=== PATIENT | female | born 1975 | race Caucasian/White ===

== ENCOUNTER → 2016-06-17 | Day surgery (SDC) | payer OTHER ==
[2016-06-16 12:31] VITALS: BMI 46.7
[~2016-06-17] MED LIST: oxyCODONE HCL 5 MG TABLET PO ONE
[2016-06-17 12:16] VITALS: TEMP 98.7
[2016-06-17 12:22] VITALS: BP 136/85; PULSE 96
--- NOTE | 2016-06-17 15:19 | OP ---
DATE OF OPERATION: 06/17/2016 PREOPERATIVE DIAGNOSIS: Low back pain with lumbar radiculopathy. POSTOPERATIVE DIAGNOSIS: Low back pain with lumbar radiculopathy. PROCEDURE: Lumbar epidural steroid injection, interlaminar, at the L4-L5 level on the left side. ANESTHESIA: Local and MAC. ANESTHESIOLOGIST: ONEL PROCEDURE: I discussed with her in detail the risks, benefits and alternative treatments. Patient understood, agreed and signed the written consent. The patient was placed in the prone position with the head, neck and abdomen supported with pillows. The lumbosacral area was prepped and draped in a sterile fashion. She was given IV sedation. On the left side, the L4-L5 level was identified under fluoroscopy and 3 mL of 1% lidocaine were injected into the skin and subcutaneous tissue. A 22-gauge, 10-1/2-inch Tuohy needle was used to approach the epidural space but it failed, so a 22-gauge, 5-inch spinal needle was used to approach the epidural space with loss of resistance technique under intimate and fluoroscopy in both AP and oblique view. Omnipaque 180 at 3 mL was injected to see the flow of dye into the epidural space both cranially and caudally. There was no venous uptake and there was no flow of CSF after negative aspiration. Then, 2.5 mL of Celestone mixed with 2.5 mL of 0.25% preservative-free Marcaine, a total of 5 mL, was injected into the epidural space after negative aspiration. While the needle was withdrawn, 1 mL of 1% lidocaine was infiltrated. The patient tolerated the procedure well. There was no immediate complication. Betadine was wiped out. A sterile bandage was placed. Patient was transferred to the recovery room. Patient was advised to apply ice. If any problems, call me or report to the ER. A followup appointment was given. KAREN ONEIL M.D. [id number] MTDD
== END | disposition home or self-care (01) ==
LOC: FASU 08:18
PROVIDERS: ATTEND Physical Medicine & Rehabilitation
PROC: 3E0R3CZ (ICD-10-PCS; 2016-06-17)
PROC: B01B1ZZ Fluoroscopy of Spinal Cord using Low Osmolar Contrast (ICD-10-PCS; 2016-06-17)
PROC: 3E0R33Z Introduction of Anti-inflammatory into Spinal Canal, Percutaneous Approach (ICD-10-PCS; principal; 2016-06-17 10:49)
DX: M54.16 Radiculopathy, lumbar region (principal); M54.5 Low back pain
CPT/HCPCS: 72100-TC; 84703

== ENCOUNTER 2016-08-26 10:55 | Day surgery (SDC) | payer OTHER ==
[2016-08-25 18:56] VITALS: BMI 46.5
[2016-08-26 12:27] VITALS: TEMP 98.2
[2016-08-26] MEDS ORDERED: PROPOFOL 20 ML ONE (13:10)
[2016-08-26] MEDS ORDERED: BETAMET ACET/BETAMET NA PH 30 MG/5 ML VIAL IM ONE (13:46)
[2016-08-26] MEDS ORDERED: LIDOCAINE HCL 1%, 10 MG/ML (20ML VIAL) IJ ONE (13:46)
[2016-08-26] MEDS ORDERED: IOHEXOL 180 MG/1 ML ML IJ ONE (13:47)
[2016-08-26 15:58] VITALS: BP 140/77; PULSE 69
--- NOTE | 2016-09-09 14:19 | OP ---
DATE OF OPERATION: 08/26/2016 PREOPERATIVE DIAGNOSES: Low back pain, lumbar radiculopathy on the left side. POSTOPERATIVE DIAGNOSES: Low back pain, lumbar radiculopathy on the left side. PROCEDURE: Lumbar epidural steroid injection, interlaminar, at left L4-L5 level. ANESTHESIA: Local and MAC. ANESTHESIOLOGIST: Shavonne Quintanilla CRNA CONSENT: I discussed with the patient the risks, benefits and alternative treatments, not only limited to infection, fever, headache, numbness, tingling, weakness, injury to nerves, blood vessels and muscles. The patient understood, agreed and signed the written consent. DESCRIPTION OF PROCEDURE: The patient was placed in the prone position. Her abdomen and legs were supported with pillows. The lumbosacral area was prepped and draped with Betadine x3 and alcohol x3. Under fluoroscopy, the left L4-L5 level was identified. At this level, 3 mL of 1% lidocaine were infiltrated. A 20-gauge, 3-1/2-inch Tuohy needle was used to approach the epidural space with the loss of resistance technique in the interlaminar approach under intermittent fluoroscopy, both the AP and oblique view. After negative aspiration, 2 mL of Omnipaque 180 were injected to see the flow of dye into the epidural space both cranially and caudally. There was no venous uptake or CSF spread. Next, 2.5 mL of Celestone mixed with 2.5 mL of 0.25% preservative-free Marcaine, a total volume 5 mL, were injected at this level after negative aspiration. While the needle was withdrawn, 1 mL of 1% lidocaine was infiltrated. Bleeding was checked. Betadine was wiped off. Sterile bandage was placed. Patient was transferred to recovery room. Patient was observed for some time and discharged as per ASU criteria. Patient was told to apply ice and heat. If any problem, call me or report to the ER. Patient was given a followup appointment. KAREN ONEIL M.D. JOAQUIN/[id number]
== END 2016-08-26 15:00 | disposition home or self-care (01) ==
LOC: JASU-SURG 10:55
PROVIDERS: ATTEND Physical Medicine & Rehabilitation
PROC: 3E0R3CZ (ICD-10-PCS; 2016-08-26)
PROC: B01BYZZ Fluoroscopy of Spinal Cord using Other Contrast (ICD-10-PCS; 2016-08-26)
PROC: 3E0R33Z Introduction of Anti-inflammatory into Spinal Canal, Percutaneous Approach (ICD-10-PCS; principal; 2016-08-26 12:30)
DX: M54.16 Radiculopathy, lumbar region (principal); M54.5 Low back pain
CPT/HCPCS: 76000-TC; 84703

== ENCOUNTER 2017-02-10 10:26 | Day surgery (SDC) | payer OTHER ==
[2017-02-09 18:04] VITALS: BMI 50.0
[2017-02-10] MEDS ORDERED: BUPIVACAINE HCL/PF 0.25% (2.5MG/ML) 10 ML VIAL ONE (10:58)
[2017-02-10] MEDS ORDERED: LIDOCAINE HCL 1%, 10 MG/ML (20ML VIAL) ONE (10:58)
[2017-02-10 11:06] VITALS: TEMP 97.3
[2017-02-10] MEDS ORDERED: LIDOCAINE HCL 1%, 10 MG/ML (20ML VIAL) INF ONE (12:21)
[2017-02-10] MEDS ORDERED: BUPIVACAINE HCL/PF (5 MG/ML) 30 ML VIAL IJ ONE (12:21)
[2017-02-10 13:51] VITALS: BP 131/79; PULSE 90
== END 2017-02-10 14:00 | disposition home or self-care (01) ==
LOC: JASU-SURG 10:26
PROVIDERS: ATTEND Physical Medicine & Rehabilitation
PROC: 3E0T3BZ Introduction of Anesthetic Agent into Peripheral Nerves and Plexi, Percutaneous Approach (ICD-10-PCS; principal; 2017-02-10)
PROC: 3E0T33Z Introduction of Anti-inflammatory into Peripheral Nerves and Plexi, Percutaneous Approach (ICD-10-PCS; 2017-02-10)
PROC: BR16YZZ Fluoroscopy of Lumbar Facet Joint(s) using Other Contrast (ICD-10-PCS; 2017-02-10)
DX: M46.86 Other specified inflammatory spondylopathies, lumbar region (principal); M54.5 Low back pain
CPT/HCPCS: 76000-TC; 84703

== ENCOUNTER 2018-01-16 16:42 | Emergency (ER) | payer OTHER ==
[2018-01-16 17:02] VITALS: BP 130/87; PULSE 93; TEMP 98.2; BMI 48.5
--- NOTE | 2018-01-16 17:28 | PDOC ---
History of Present Illness - General Chief Complaint: Cold Symptoms Stated Complaint: RIB CAGE PAIN Time Seen by Provider: 01/16/18 17:18 History Source: Patient Exam Limitations: Clinical Condition - History of Present Illness Initial Comments: 01/16/18 17:23 Patient with no significant past medication present with complaint of 3 the issue of nonproductive cough, runny nose and now left-sided for cage pain for 2 days. Patient denies fever, chills, diarrhea or constipation. Patient denies symptoms symptoms Timing/Duration: other (3 days) Past History - Past Medical History Allergies/Adverse Reactions: Allergies Allergy/AdvReac Type Severity Reaction Status Date / Time No Known Drug Allergies Allergy Verified 01/16/18 16:58 Home Medications: Ambulatory Orders Azithromycin [Zithromax 250mg Tablets -] 250 mg PO UTDICT #6 tab 01/16/18 Benzonatate [Tessalon Pearls -] 100 mg PO TID PRN #21 capsule 01/16/18 Ipratropium [place] 2 spray NS BID PRN #1 spray 01/16/18 Methylprednisolone [Medrol Dose Yanick] 4 mg PO ASDIR #21 tablet 01/16/18 Anemia: No Asthma: No (HASN'T USED INHALER IN OVER A YEAR) Cancer: No Cardiac Disorders: No CVA: No COPD: No CHF: No Dementia: No Diabetes: No (GESTATIONAL) GI Disorders: Yes (HX GALL STONES) Disorders: Yes (DROPPED BLADDER) HTN: No Hypercholesterolemia: No Liver Disease: No Seizures: No Thyroid Disease: No - Surgical History Abdominal Surgery: No Appendectomy: No Cardiac Surgery: No Cholecystectomy: Yes (2014) Lung Surgery: No Neurologic Surgery: No Orthopedic Surgery: No - Immunization History Td Vaccination: Yes - Suicide/Smoking/Psychosocial Hx Smoking Status: No Smoking History: Never smoked Years of Tobacco Use: 0 Have you smoked in the past 12 months: No Number of Cigarettes Smoked Daily: 0 Cigars Per Day: 0 Information on smoking cessation initiated: No Hx Alcohol Use: No Drug/Substance Use Hx: No Substance Use Type: None Hx Substance Use Treatment: No Review of Systems - Review of Systems Able to Perform ROS?: Yes Is the patient limited Polish proficient: No Constitutional: No: Chills, Fever, Weakness HEENTM: Yes: Symptoms Reported, See HPI, Nose Congestion. No: Eye Pain, Blurred Vision, Tearing, Recent change in vision, Double Vision, Cataracts, Ear Pain, Ocular Prothesis, Ear Discharge, Nose Pain, Tinnitus, Nose Bleeding, Hearing Loss, Throat Pain, Throat Swelling, Mouth Pain, Dental Problems, Difficulty Swallowing, Mouth Swelling, Other Respiratory: Yes: See HPI, Cough. No: Orthopnea, Shortness of Breath, SOB with Exertion, SOB at Rest, Stridor, Wheezing, Productive cough, Hemoptysis Cardiac (ROS): No: Symptoms Reported, Chest Pain, Edema, Irregular Heart Rate, Lightheadedness, Palpitations, Syncope, Chest Tightness, Other ABD/GI: No: Symptoms Reported, Abdominal Distended, Abd. Pain w/ defecation, Blood Streaked Bowels, Constipated, Diarrhea, Difficulty Swallowing, Nausea, Poor Appetite, Poor Fluid Intake, Rectal Bleeding, Vomiting, Indigestion, Abdominal cramping, Tarry Stools, Other Musculoskeletal: Yes: See HPI, Muscle Pain (left lower ribs pain). No: Back Pain, Muscle Weakness All Other Systems: Reviewed and Negative *Physical Exam - Vital Signs Last Vital Signs Temp Pulse Resp BP Pulse Ox 98.2 F 93 H 16 130/87 98 01/16/18 16:50 01/16/18 16:50 01/16/18 16:50 01/16/18 16:50 01/16/18 16:50 - Physical Exam Comments: 01/16/18 17:25 GENERAL: Well developed, well nourished. Awake and alert. No acute distress. HEENT: Normocephalic, atraumatic. PERRLA, EOMI. No conjunctival pallor. Sclera are non-icteric. Moist mucous membranes. Oropharynx is clear. NECK: Supple. Full ROM. CARDIOVASCULAR: Regular rate and rhythm. No murmurs, rubs, or gallops. Distal pulses are 2+ and symmetric. PULMONARY: No evidence of respiratory distress. Lungs clear to auscultation bilaterally. No wheezing, rales or rhonchi. ABDOMINAL: Soft. Non-tender. Non-distended. No rebound or guarding. No organomegaly. Normoactive bowel sounds. MUSCULOSKELETAL : moderate tenderness to left lower ribcage.Normal range of motion at all joints. SKIN: Warm and dry. Normal capillary refill. No rashes. No jaundice. NEUROLOGICAL: Alert, awake, appropriate. Gait is normal without ataxia. PSYCHIATRIC: Cooperative. Good eye contact. Appropriate mood General Appearance: Yes: Nourished, Appropriately Dressed. No: Apparent Distress ED Treatment Course - RADIOLOGY Radiology Studies Ordered: Category Date Time Status CHEST PA & LAT [RAD] Stat Radiology 01/16/18 17:22 Ordered Medical Decision Making - Medical Decision Making 01/16/18 17:26 Patient with no syndrome past medication present with complaint of persistent nonproductive cough, runny nose, nasal congestion and left-sided rib pain. Exam significant for moderate tenderness to left lower rib cage otherwise unremarkable exam. Symptoms likely musculoskeletal from persistent cough. Chest x-ray ordered. Discharge home on NSAIDs if negative chest x-ray. 01/16/18 18:10 chest x-ray shows no acute pathology of infiltrate. Patient stable for discharge for outpatient treatment for Bronchitis *DC/Admit/Observation/Transfer Diagnosis at time of Disposition: Bronchitis, Rib pain on left side, Cough - Discharge Dispostion Disposition: HOME Condition at time of disposition: Stable Decision to Admit order: No - Prescriptions Prescriptions: Azithromycin [Zithromax 250mg Tablets -] 250 mg PO UTDICT #6 tab Benzonatate [Tessalon Pearls -] 100 mg PO TID PRN #21 capsule PRN Reason: Cough Ipratropium [place] 2 spray NS BID PRN #1 spray PRN Reason: nasal congestion Methylprednisolone [Medrol Dose Yanick] 4 mg PO ASDIR #21 tablet - Referrals Referrals: John Paul To MD [Primary Care Provider] - - Patient Instructions Printed Discharge Instructions: DI for Acute Bronchitis Additional Instructions: take medications as prescribed. You will be contacted if any change in X-ray report from radiologist. Follow-up with PCP - Post Discharge Activity
[2018-01-16] MEDS ORDERED: IBUPROFEN 400 MG TABLET (FP) PO ONE ×2 (17:46→17:48)
== END 2018-01-16 17:51 | disposition home or self-care (01) ==
LOC: JERFT 16:42
DX: J40 Bronchitis, not specified as acute or chronic (principal); Z87.09 Personal history of other diseases of the respiratory system
CPT/HCPCS: 71046-TC-FY; 99281-25

== ENCOUNTER 2018-04-16 22:16 | Emergency (ER) | payer OTHER ==
[2018-04-16 22:27] VITALS: PULSE 88; BMI 51.6
[2018-04-16] MEDS ORDERED: ALBUTEROL SO4 2.5/IPRATROPIUM 0.5 INH SOL 3 ML VIAL.NEB. NEB ONE (23:23)
--- NOTE | 2018-04-17 00:18 | PDOC ---
Attending Attestation - HPI HPI: 04/17/18 01:20 The patient is a 43 year old female with past medical history significant for chronic pain presents to the emergency department with a cough and shortness of breath. The patient presents with 3 days of worsening cough with shortness of breath. The patient reports shes had severe episode of coughs today with the feeling of O2 level dropping and pain radiating down the legs. Denies fever, chills, chest pain, or known sick contact. Allergies: NKDA Social history: No tobacco, alcohol or drug use reported. PCP: Dr. Hui To. - Medical Decision Making 04/17/18 01:20 Documentation prepared by Tamiko Milner, acting as medical clinic manager for Darya Olivera MD. <Tamiko Milner - Last Filed: 04/17/18 01:20> - Resident Resident Name: Willie Diaz - ED Attending Attestation I have performed the following: I have examined & evaluated the patient, The case was reviewed & discussed with the resident, I agree w/resident's findings & plan - Physicial Exam PE: 04/17/18 19:51 Agree with resident exam. No acute findings. Pt comes with chronic pains. - Medical Decision Making 04/17/18 19:52 No need for further workup. Pt will follow with her PMD and pain doc for pain meds. <Darya Olivera - Last Filed: 04/17/18 19:52>
--- NOTE | 2018-04-17 01:04 | PDOC ---
History of Present Illness - General Chief Complaint: Shortness of Breath Stated Complaint: cough,shortness of breath Time Seen by Provider: 04/17/18 00:06 History Source: Patient Exam Limitations: No Limitations - History of Present Illness Initial Comments: 04/17/18 00:58 The patient is a 43F with a PMH of chronic pain who presents to the ER with complaints of cough x 3 days. The patient states that her cough was so severe that she felt like "she was not getting oxygen to her body". She states that she also coughed so hard that she spit up blood. She denies fever, chills, myalgias, CP, current SOB. She denies any long car rides/plane trips, hx of cancer, hx of DVT/PE. Past History - Past Medical History Allergies/Adverse Reactions: Allergies Allergy/AdvReac Type Severity Reaction Status Date / Time No Known Drug Allergies Allergy Verified 01/16/18 16:58 Home Medications: Ambulatory Orders Albuterol Sulfate Inhaler - [Ventolin HFA Inhaler -] 1 - 2 inh PO QID PRN #1 inhaler 04/17/18 Hydrocodone/Acetaminophen [Vicodin 5-300 mg Tablet] 1 each PO DAILY 04/17/18 Anemia: No Asthma: No (HASN'T USED INHALER IN OVER A YEAR) Cancer: No Cardiac Disorders: No CVA: No COPD: No CHF: No Dementia: No Diabetes: No (GESTATIONAL) GI Disorders: Yes (HX GALL STONES) Disorders: Yes (DROPPED BLADDER) HTN: No Hypercholesterolemia: No Liver Disease: No Seizures: No Thyroid Disease: No Other medical history: herniated discs - Surgical History Abdominal Surgery: No Appendectomy: No Cardiac Surgery: No Cholecystectomy: Yes (2014) Lung Surgery: No Neurologic Surgery: No Orthopedic Surgery: No - Immunization History Td Vaccination: Yes - Suicide/Smoking/Psychosocial Hx Smoking Status: No Smoking History: Never smoked Years of Tobacco Use: 0 Have you smoked in the past 12 months: No Number of Cigarettes Smoked Daily: 0 Cigars Per Day: 0 Information on smoking cessation initiated: No Hx Alcohol Use: No Drug/Substance Use Hx: No Substance Use Type: None Hx Substance Use Treatment: No Review of Systems - Review of Systems Able to Perform ROS?: Yes Comments:: 04/17/18 01:02 GENERAL/CONSTITUTIONAL: No fever or chills. No weakness. HEAD, EYES, EARS, NOSE AND THROAT: No change in vision. No ear pain or discharge. No sore throat. CARDIOVASCULAR: No chest pain, palpitations, or lightheadedness. RESPIRATORY: Positive for cough and SOB with mild hemoptysis. GASTROINTESTINAL: No nausea, vomiting, diarrhea, constipation, or abdominal pain. GENITOURINARY: No dysuria, frequency, hematuria, or change in urination. MUSCULOSKELETAL: No joint or muscle swelling or pain. No neck or back pain. SKIN: No rash or lesions. NEUROLOGIC: No headache, numbness, tingling, focal weakness, loss of consciousness, or change in strength/sensation. Is the patient limited German proficient: No *Physical Exam - Vital Signs Last Vital Signs Temp Pulse Resp BP Pulse Ox 97.7 F 88 20 124/82 99 04/16/18 22:21 04/16/18 22:21 04/16/18 22:21 04/16/18 22:21 04/16/18 22:21 - Physical Exam Comments: 04/17/18 01:02 GENERAL: Well developed, well nourished. Awake and alert. No acute distress. HEENT: Normocephalic, atraumatic. Hearing grossly normal. Moist mucous membranes. PERRLA, EOMI. No conjunctival pallor. Sclera are non-icteric. NECK: Supple. Full ROM. No JVD. CARDIOVASCULAR: Regular rate and rhythm. No murmurs, rubs, or gallops. PULMONARY: No evidence of respiratory distress. Lungs clear to auscultation bilaterally. No wheezing, rales or rhonchi. ABDOMINAL: Soft. Non-tender. Non-distended. No rebound or guarding. GENITOURINARY: No CVA tenderness bilaterally. MUSCULOSKELETAL: Normal range of motion at all joints. No bony deformities or tenderness. EXTREMITIES: No cyanosis. No clubbing. No edema. No calf tenderness or swelling. SKIN: Warm and dry. Normal capillary refill. No rashes. No jaundice. NEUROLOGICAL: Alert, awake, appropriate. Cranial nerves 2-12 grossly intact. Normal speech. Gait is normal without ataxia. PSYCHIATRIC: Cooperative. Good eye contact. Appropriate mood and affect. Moderate Sedation - Procedure Monitoring Vital Signs: Procedure Monitoring Vital Signs Temperature 97.7 F 04/16/18 22:21 Pulse Rate 88 04/16/18 22:21 Respiratory Rate 20 04/16/18 22:21 Blood Pressure 124/82 04/16/18 22:21 O2 Sat by Pulse Oximetry (%) 99 04/16/18 22:21 ED Treatment Course - RADIOLOGY Radiology Studies Ordered: Category Date Time Status CHEST PA & LAT [RAD] Stat Radiology 04/17/18 00:43 Ordered Medical Decision Making - Medical Decision Making 04/17/18 01:03 The patient is a 43F with a PMH of chronic pain who presents with 3 days of cold symptoms. Pt feels better after breathing treatment. Will order CXR after negative Upreg as pt has abnormal periods. Will also order outpt breathing tx. 04/17/18 01:57 XR unremarkable on preliminary read. Will d/c with PCP f/u. *DC/Admit/Observation/Transfer Diagnosis at time of Disposition: Viral URI with cough - Discharge Dispostion Disposition: HOME Condition at time of disposition: Stable Decision to Admit order: No - Prescriptions Prescriptions: Albuterol Sulfate Inhaler - [Ventolin HFA Inhaler -] 1 - 2 inh PO QID PRN #1 inhaler PRN Reason: Cough - Referrals Referrals: John Paul To MD [Primary Care Provider] - - Patient Instructions Printed Discharge Instructions: Common Cold Additional Instructions: Please follow up with your primary care physician in 2-3 days. Please return to the ER if you have any signs or symptoms of chest pain, shortness of breath, uncontrollable fever, chills, nausea, vomiting, numbness, tingling, or weakness in any part of your body, changes in vision, or slurred speech. Please take your medications as prescribed. Please return to the ER if symptoms persist, worsen, or new symptoms arise. - Post Discharge Activity
[2018-04-17 02:05] VITALS: BP 126/78; TEMP 98.5
== END 2018-04-17 02:06 | disposition home or self-care (01) ==
LOC: JER 22:16
DX: J06.9 Acute upper respiratory infection, unspecified (principal); B97.89 Other viral agents as the cause of diseases classified elsewhere
CPT/HCPCS: 71046-TC-FY; 84703; 99281-25

== ENCOUNTER 2018-04-17 15:48 | Emergency (ER) | payer OTHER ==
[2018-04-17 15:59] VITALS: BP 154/77; PULSE 125; TEMP 99.5; BMI 51.7
--- NOTE | 2018-04-17 17:00 | PDOC ---
History of Present Illness - General Chief Complaint: Respiratory Stated Complaint: FLU LIKE SYMPTOMS Time Seen by Provider: 04/17/18 16:45 History Source: Patient Exam Limitations: No Limitations - History of Present Illness Initial Comments: 04/17/18 16:56 Patient is here with complaints of progressive worsening cough, fevers, headache , sore throat and ear pain, moist productive cough of thick clearish phlegm. Was seen here yesterday with hemoptysis, no testing was done or medications provided. Timing/Duration: reports: getting worse Severity: reports: mild Past History - Travel Traveled outside of the country in the last 30 days: No Close contact w/someone who was outside of country & ill: No - Past Medical History Allergies/Adverse Reactions: Allergies Allergy/AdvReac Type Severity Reaction Status Date / Time No Known Drug Allergies Allergy Verified 01/16/18 16:58 Home Medications: Ambulatory Orders Oseltamivir Phosphate [Tamiflu -] 75 mg PO BID #10 capsule 04/17/18 Anemia: No Asthma: No (HASN'T USED INHALER IN OVER A YEAR) Cancer: No Cardiac Disorders: No CVA: No COPD: No CHF: No Dementia: No Diabetes: No (GESTATIONAL) GI Disorders: Yes (HX GALL STONES) Disorders: Yes (DROPPED BLADDER) HTN: No Hypercholesterolemia: No Liver Disease: No Seizures: No Thyroid Disease: No - Surgical History Abdominal Surgery: No Appendectomy: No Cardiac Surgery: No Cholecystectomy: Yes (2014) Lung Surgery: No Neurologic Surgery: No Orthopedic Surgery: No - Immunization History Td Vaccination: Yes - Suicide/Smoking/Psychosocial Hx Smoking Status: No Smoking History: Never smoked Years of Tobacco Use: 0 Have you smoked in the past 12 months: No Number of Cigarettes Smoked Daily: 0 Cigars Per Day: 0 Hx Alcohol Use: No Drug/Substance Use Hx: No Substance Use Type: None Hx Substance Use Treatment: No Review of Systems - Review of Systems Able to Perform ROS?: Yes Is the patient limited Sammarinese proficient: Yes Constitutional: Yes: Symptoms Reported, See HPI, Chills, Fever, Malaise, Weakness HEENTM: Yes: Symptoms Reported, See HPI, Nose Congestion, Throat Pain Respiratory: Yes: Symptoms reported, See HPI, Cough, Wheezing ABD/GI: Yes: Symptoms Reported, See HPI, Nausea Musculoskeletal: Yes: Symptoms Reported, Muscle Pain, Muscle Weakness Integumentary: Yes: Symptoms Reported, Pallor All Other Systems: Reviewed and Negative *Physical Exam - Vital Signs Last Vital Signs Temp Pulse Resp BP Pulse Ox 99.5 F 125 H 20 154/77 98 04/17/18 15:56 04/17/18 15:56 04/17/18 15:56 04/17/18 15:56 04/17/18 15:56 - Physical Exam Comments: 04/17/18 16:57 GENERAL: [The child is awake, alert, and appropriately interactive.] EYES: [The pupils are equal, round, and reactive to light, with clear, conjunctiva.but glassy] NOSE: [The nose with clear drainage EARS: [The ear canals and tympanic membranes are congested but landmarks easily visualed ] THROAT: [The oropharynx is clear with erythema, no exudates. The mucous membranes are moist.] NECK: [The neck is supple with mildly tender adenopathy, no menigemous] CHEST: [The lungs are coarse but clear without crackles, or wheezes.] HEART: [Heart is regular rhythm, with normal S1 and S2, no murmurs.] ABDOMEN: [The abdomen is soft and nontender with normal bowel sounds. There is no organomegaly and no mass. There is no guarding or rebound.] EXTREMITIES: [Extremities are normal.] NEURO: [Behavior is normal for age.cranky but easily,m Tone is normal.] SKIN: [Skin is unremarkable without rash or swelling. There is no bruising, and there are no other signs of injury.] General Appearance: Yes: Nourished, Appropriately Dressed, Apparent Distress, Mild Distress, Moderate Distress HEENT: positive: JOHNATHON Neurologic: positive: shot packer II-XII NML intact, Fully Oriented Moderate Sedation - Procedure Monitoring Vital Signs: Procedure Monitoring Vital Signs Temperature 99.5 F 04/17/18 15:56 Pulse Rate 125 H 04/17/18 15:56 Respiratory Rate 20 04/17/18 15:56 Blood Pressure 154/77 04/17/18 15:56 O2 Sat by Pulse Oximetry (%) 98 04/17/18 15:56 *DC/Admit/Observation/Transfer Diagnosis at time of Disposition: Influenzal acute upper respiratory infection - Discharge Dispostion Disposition: HOME Condition at time of disposition: Stable Decision to Admit order: No - Referrals - Patient Instructions Printed Discharge Instructions: DI for Viral Upper Respiratory Infection -- Adult Additional Instructions: Rest, drink lots of fluids: Teas, water, soups, Pedialyte Saltwater gargles Steamy showers/seem to face break up mucus Old-fashioned treatments help! Avoid contact with others until fevers and cough resolved as this is very contagious Lots of handwashing and good hygiene Continue [id number]-ldkliiq medications for symptomatic relief Tylenol or Motrin for fever and pain Take all of Tamiflu as directed: 1 tab every 12 hours for 5 days Followup with private physician in one to 2 days as needed or if worsening Return to emergency department for worsened symptoms, fevers, dehydration Influenza takes between 5 and 7 days for resolution To not participate in any activity, work, or school until fevers and cough are gone for at least one day - Post Discharge Activity
== END 2018-04-17 17:04 | disposition home or self-care (01) ==
LOC: JERFT 15:48
DX: J11.1 Influenza due to unidentified influenza virus with other respiratory manifestations (principal)
CPT/HCPCS: 99281-25

== ENCOUNTER 2018-04-26 10:42 | Emergency (ER) | payer OTHER ==
[2018-04-26 10:58] VITALS: BP 157/71; PULSE 97; TEMP 98.1; BMI 51.6
[2018-04-26] MEDS ORDERED: DEXAMETHASONE LIQUID 0.5 MG/5 ML 240 ML BULK BOTTLE PO ONE (11:32)
--- NOTE | 2018-04-26 11:33 | PDOC ---
History of Present Illness - General Chief Complaint: Respiratory Stated Complaint: COUGHING/CONJESTED, SOB Time Seen by Provider: 04/26/18 11:24 - History of Present Illness Initial Comments: 04/26/18 11:31 43-year-old female without comorbidities recently treated for the flu presents for evaluation of cough and difficulty breathing and shortness of breath 2 days. She was given a home nebulizer which did not help her. She denies fever. Past History - Past Medical History Allergies/Adverse Reactions: Allergies Allergy/AdvReac Type Severity Reaction Status Date / Time No Known Drug Allergies Allergy Verified 04/26/18 10:54 Home Medications: Ambulatory Orders Azithromycin [Zithromax -] 250 mg PO UTDICT #6 tab 04/26/18 Anemia: No Asthma: No (HASN'T USED INHALER IN OVER A YEAR) Cancer: No Cardiac Disorders: No CVA: No COPD: No CHF: No Dementia: No Diabetes: No (GESTATIONAL) GI Disorders: Yes (HX GALL STONES) Disorders: Yes (DROPPED BLADDER) HTN: No Hypercholesterolemia: No Liver Disease: No Seizures: No Thyroid Disease: No - Surgical History Abdominal Surgery: No Appendectomy: No Cardiac Surgery: No Cholecystectomy: Yes (2014) Lung Surgery: No Neurologic Surgery: No Orthopedic Surgery: No - Immunization History Td Vaccination: Yes - Suicide/Smoking/Psychosocial Hx Smoking Status: No Smoking History: Never smoked Years of Tobacco Use: 0 Have you smoked in the past 12 months: No Number of Cigarettes Smoked Daily: 0 Cigars Per Day: 0 Hx Alcohol Use: No Drug/Substance Use Hx: No Substance Use Type: None Hx Substance Use Treatment: No Review of Systems - Review of Systems Constitutional: Yes: Chills, Malaise. No: Fever Respiratory: Yes: Cough, Orthopnea, Shortness of Breath, Productive cough Cardiac (ROS): Yes: Chest Pain *Physical Exam - Vital Signs Last Vital Signs Temp Pulse Resp BP Pulse Ox 98.1 F 97 H 20 157/71 98 04/26/18 10:55 04/26/18 10:55 04/26/18 10:55 04/26/18 10:55 04/26/18 10:55 - Physical Exam Comments: 04/26/18 11:32 HEAD: NC/AT EYES: Conjuntiva clear Ears: Canals and TM's normal NOSE: No d/c THROAT: Moist mucous membrances, oral pharanx clear, uvula midline NECK: Supple without adenopathy CARDIAC: S1 S2 LUNGS: Decreased at the bases mild expiratory wheezing ABDOMEN: Soft NT ND MS: Full ROM in all joints without edema NEUROLOGIC: No gross sensory or motor deficits, NVID SKIN: Normal color and temperature no lesions or rashes Moderate Sedation - Procedure Monitoring Vital Signs: Procedure Monitoring Vital Signs Temperature 98.1 F 04/26/18 10:55 Pulse Rate 97 H 04/26/18 10:55 Respiratory Rate 20 04/26/18 10:55 Blood Pressure 157/71 04/26/18 10:55 O2 Sat by Pulse Oximetry (%) 98 04/26/18 10:55 ED Treatment Course - RADIOLOGY Radiology Studies Ordered: Category Date Time Status CHEST PA & LAT [RAD] Stat Radiology 04/26/18 11:30 Ordered Medical Decision Making - Medical Decision Making 04/26/18 12:57 Improved, no wheezing after duo neb, will treat for bronchitis *DC/Admit/Observation/Transfer Diagnosis at time of Disposition: Bronchitis - Discharge Dispostion Disposition: HOME Condition at time of disposition: Stable Decision to Admit order: No - Referrals Referrals: John Paul To MD [Primary Care Provider] - - Patient Instructions Printed Discharge Instructions: Acute Bronchitis Additional Instructions: Return to the emergency room should symptoms worsen or go unresolved. Please continue with her home DuoNeb treatments and nebulizers as scheduled follow-up with your primary care physician in one to 2 days for further evaluation and treatment options and can take the antibiotics as directed and finish the entire course - Post Discharge Activity
[2018-04-26] MEDS ORDERED: DEXAMETHASONE SOD PHOSPHATE 10 MG/1 ML VIAL ONE (11:39)
[2018-04-26] MEDS ORDERED: ALBUTEROL SO4 2.5/IPRATROPIUM 0.5 INH SOL 3 ML VIAL.NEB. NEB ONE (11:39)
[2018-04-26] MEDS: ALBUTEROL SO4 2.5/IPRATROPIUM 0.5 INH SOL 3 ML VIAL.NEB. NEB SCH ×4 (11:44→12:45)
== END 2018-04-26 13:02 | disposition home or self-care (01) ==
LOC: JERFT 10:42
PROC: 3E0F7GC Introduction of Other Therapeutic Substance into Respiratory Tract, Via Natural or Artificial Opening (ICD-10-PCS; principal; 2018-04-26)
DX: J40 Bronchitis, not specified as acute or chronic (principal)
CPT/HCPCS: 71046-TC-FY; 94640; 99281-25

== ENCOUNTER 2018-07-20 08:18 | Day surgery (SDC) | payer OTHER ==
[2018-07-20] MEDS ORDERED: oxyCODONE HCL 5 MG TABLET PO PRN ×2 (08:35)
[2018-07-20] MEDS ORDERED: ONDANSETRON 4 MG/2 ML VIAL IVPUSH PRN (08:35)
[2018-07-20 08:47] VITALS: BMI 52.3
[2018-07-20] MEDS ORDERED: TRIAMCINOLONE ACET 40MG/1ML VIAL ONE (09:59)
[2018-07-20] MEDS ORDERED: MIDAZOLAM HCL 2 MG/2 ML SINGLE DOSE VIAL ONE (10:02)
[2018-07-20] MEDS ORDERED: LIDOCAINE HCL 1%, 10 MG/ML (20ML VIAL) ONE (10:07)
[2018-07-20] MEDS ORDERED: BUPIVACAINE HCL/PF 0.5% (5MG/ML) 10 ML VIAL ONE (10:07)
[2018-07-20] MEDS ORDERED: PROPOFOL 20 ML ONE (10:13)
[2018-07-20] MEDS ORDERED: LIDOCAINE HCL 1%, 10 MG/ML (20ML VIAL) NR ONE (10:17)
[2018-07-20] MEDS ORDERED: TRIAMCINOLONE ACET 40MG/1ML VIAL IM ONE (10:19)
[2018-07-20] MEDS ORDERED: IOHEXOL 180 MG/1 ML ML IJ ONE (10:20)
[2018-07-20] MEDS ORDERED: BUPIVACAINE HCL/PF (5 MG/ML) 30 ML VIAL IJ ONE (10:21)
[2018-07-20 11:29] VITALS: BP 140/83; PULSE 80; TEMP 7.6
== END 2018-07-20 11:25 | disposition home or self-care (01) ==
LOC: JASU-SURG 08:18
PROVIDERS: ATTEND Physical Medicine & Rehabilitation
PROC: 3E0U3BZ Introduction of Anesthetic Agent into Joints, Percutaneous Approach (ICD-10-PCS; 2018-07-20)
PROC: 3E0U33Z Introduction of Anti-inflammatory into Joints, Percutaneous Approach (ICD-10-PCS; principal; 2018-07-20 12:00)
DX: M53.3 Sacrococcygeal disorders, not elsewhere classified (principal)
CPT/HCPCS: 76000-TC-FY; 84703

== ENCOUNTER 2018-10-20 10:34 | Emergency (ER) | payer OTHER ==
[2018-10-20 10:46] VITALS: BP 136/74; PULSE 100; TEMP 98.3; BMI 48.5
[2018-10-20] MEDS ORDERED: DIPHTH,PERTUSS(ACELL),TET 0.5 ML DISP.SYRIN IM ONE ×3 (11:16→11:18)
[2018-10-20] MEDS ORDERED: KETOROLAC TROMETHAMINE 30 MG/1 ML VIAL IM ONE (11:19)
[2018-10-20] MEDS ORDERED: KETOROLAC TROMETHAMINE 30 MG/1 ML VIAL ONE (11:19)
--- NOTE | 2018-10-20 11:38 | PDOC ---
History of Present Illness - General Chief Complaint: Bite Stated Complaint: GABRIEL ARMS/ GABRIEL LEGS SCRATCHES Time Seen by Provider: 10/20/18 10:57 History Source: Patient Exam Limitations: No Limitations - History of Present Illness Initial Comments: 10/20/18 11:34 43 year old female with history of herniated disc, and cholescystectomy presents with multiple scratches and bite from own cat. Patient reports that cat attacked child in home and while preventing further injury to child, cat attacked her, biting both upper arms and scratching legs. States cat has no shots and she own cat for 3 years. Timing/Duration: reports: just prior to arrival Severity: Yes: severe Location: reports: extremities, torso Respiratory Risk Factors: reports: no cause identified Associated Symptoms: reports: edema, other (scratches and bites) Past History - Travel Traveled outside of the country in the last 30 days: No Close contact w/someone who was outside of country & ill: No - Past Medical History Allergies/Adverse Reactions: Allergies Allergy/AdvReac Type Severity Reaction Status Date / Time No Known Drug Allergies Allergy Verified 10/20/18 10:36 Home Medications: Ambulatory Orders Amox-Tr/K Cl [Augmentin - 875Mg Tablet] 1 tab PO BID #14 tablet 10/20/18 Ibuprofen 600 mg PO TID #21 tablet 10/20/18 Anemia: No Asthma: No (HASN'T USED INHALER IN OVER A YEAR) Cancer: No Cardiac Disorders: No CVA: No COPD: No CHF: No Dementia: No Diabetes: No (GESTATIONAL) GI Disorders: Yes (HX GALL STONES) Disorders: Yes (DROPPED BLADDER) HTN: No Hypercholesterolemia: No Liver Disease: No Seizures: No Thyroid Disease: No - Surgical History Abdominal Surgery: No Appendectomy: No Cardiac Surgery: No Cholecystectomy: Yes (2014) Lung Surgery: No Neurologic Surgery: No Orthopedic Surgery: No - Immunization History Td Vaccination: Yes - Suicide/Smoking/Psychosocial Hx Smoking Status: No Smoking History: Never smoked Years of Tobacco Use: 0 Have you smoked in the past 12 months: No Number of Cigarettes Smoked Daily: 0 Cigars Per Day: 0 Hx Alcohol Use: No Drug/Substance Use Hx: No Substance Use Type: None Hx Substance Use Treatment: No Review of Systems - Review of Systems Able to Perform ROS?: Yes Is the patient limited Turkmen proficient: No Constitutional: No: Chills, Fever, Malaise, Night Sweats HEENTM: No: Ear Pain, Nose Congestion, Throat Pain, Throat Swelling Respiratory: No: Cough, Orthopnea, Wheezing Cardiac (ROS): No: Chest Pain, Lightheadedness ABD/GI: No: Blood Streaked Bowels, Nausea, Vomiting, Indigestion Musculoskeletal: No: Back Pain, Muscle Weakness Integumentary: Yes: Erythema, Other (scratches to extremities and bites to upper arms) Neurological: No: Headache, Paresthesia, Tremors Psychiatric: No: Mood Swings Endocrine: No: Increased Urine, Unexplained Weight Gain, Change in Weight Hematologic/Lymphatic: No: Blood Clots, Easy Bleeding *Physical Exam - Vital Signs Last Vital Signs Temp Pulse Resp BP Pulse Ox 98.3 F 100 H 18 136/74 98 10/20/18 10:38 10/20/18 10:38 10/20/18 10:38 10/20/18 10:38 10/20/18 10:38 - Physical Exam General Appearance: Yes: Nourished, Appropriately Dressed HEENT: positive: EOMI, JOHNATHON, TMs Normal, Pharynx Normal Neck: positive: Supple. negative: Lymphadenopathy (R), Lymphadenopathy (L) Respiratory/Chest: positive: Chest Tender, Lungs Clear, Normal Breath Sounds Cardiovascular: positive: Regular Rhythm, Regular Rate Extremity: positive: Normal Capillary Refill Integumentary: positive: Other (+scratches) Neurologic: positive: Fully Oriented, Alert Medical Decision Making - Medical Decision Making 10/20/18 11:37 43 year old female with history of herniated disc, and cholescystectomy presents with multiple scratches and bite from own cat. Plan tetanus vaccine toradol for pain 10/20/18 20:01 rx: augmentin instructed to return 10/28/18 for follow up *DC/Admit/Observation/Transfer Diagnosis at time of Disposition: Cat bite Qualifiers: Encounter type: initial encounter Qualified Code(s): W55.01XA - Bitten by cat, initial encounter - Discharge Dispostion Disposition: HOME Condition at time of disposition: Good Decision to Admit order: No - Prescriptions Prescriptions: Amox-Tr/K Cl [Augmentin - 875Mg Tablet] 1 tab PO BID #14 tablet Ibuprofen 600 mg PO TID #21 tablet - Referrals Referrals: John Paul To MD [Primary Care Provider] - 3 days - Patient Instructions Printed Discharge Instructions: DI for Animal Bites Additional Instructions: Please keep wound covered for 24 hours then remove dressing and wash gently with mild soap and water. May leave wound open to air. Return to emergency room 10/28/18 for wound check Return to emergency room for fever or chills. - Post Discharge Activity Forms/Work/School Notes: Back to Work
[2018-10-20] MEDS ORDERED: BACITRACIN 0.9 GM PACKET TP ONE (11:49)
[2018-10-20] MEDS ORDERED: BACITRACIN 15 GM TUBE TOPICAL OINTMENT ONE (11:57)
== END 2018-10-20 12:34 | disposition home or self-care (01) ==
LOC: JERFT 10:34
PROC: 3E0234Z Introduction of Serum, Toxoid and Vaccine into Muscle, Percutaneous Approach (ICD-10-PCS; principal; 2018-10-20)
DX: T14.8XXA Other injury of unspecified body region, initial encounter (principal); W55.01XA Bitten by cat, initial encounter; Y93.89 Activity, other specified; Y92.89 Other specified places as the place of occurrence of the external cause
CPT/HCPCS: 90715; 99281-25

== ENCOUNTER 2018-10-28 11:35 | Emergency (ER) | payer OTHER ==
[2018-10-28 11:43] VITALS: BP 131/82; PULSE 79; TEMP 98.5; BMI 49.3
--- NOTE | 2018-10-28 12:06 | PDOC ---
Suture Removal/Wound Check HPI - History of Present Illness Chief Complaint: Bite Stated Complaint: FOLLOW UP FOR ANIMAL SCRATCHES Time Seen by Provider: 10/28/18 11:49 History Source: Yes: Patient Exam Limitations: Yes: No Limitations Treated at: [facility] ED - Previous ED Treatment Type of procedure performed on last visit: Yes: Other (treatment for cat scratches) Tetanus Immunization: Yes: Up to Date - Onset of Previous Treatment Date of Occurence: 10/21/18 Past History - Travel Traveled outside of the country in the last 30 days: No - Past Medical History Allergies/Adverse Reactions: Allergies Allergy/AdvReac Type Severity Reaction Status Date / Time No Known Drug Allergies Allergy Verified 10/20/18 10:36 Home Medications: Ambulatory Orders Amox-Tr/K Cl [Augmentin - 875Mg Tablet] 1 tab PO BID #14 tablet 10/20/18 Ibuprofen 600 mg PO TID #21 tablet 10/20/18 Cephalexin [Keflex] 500 mg PO BID #14 capsule 10/28/18 Anemia: No Asthma: No (HASN'T USED INHALER IN OVER A YEAR) Cancer: No Cardiac Disorders: No CVA: No COPD: No CHF: No Dementia: No Diabetes: No (GESTATIONAL) GI Disorders: Yes (HX GALL STONES) Disorders: Yes (DROPPED BLADDER) HTN: No Hypercholesterolemia: No Liver Disease: No Seizures: No Thyroid Disease: No - Surgical History Abdominal Surgery: No Appendectomy: No Cardiac Surgery: No Cholecystectomy: Yes (2014) Lung Surgery: No Neurologic Surgery: No Orthopedic Surgery: No - Immunization History Td Vaccination: Yes - Suicide/Smoking/Psychosocial Hx Smoking Status: No Smoking History: Never smoked Years of Tobacco Use: 0 Have you smoked in the past 12 months: No Number of Cigarettes Smoked Daily: 0 Cigars Per Day: 0 Information on smoking cessation initiated: No Hx Alcohol Use: No Drug/Substance Use Hx: No Substance Use Type: None Hx Substance Use Treatment: No Suture Removal/Wound Check PE - Physical Exam Laceration/Wound Check Symptoms: reports: None Current Severity Level: None Maximum Severity Level: None Location of Laceration/Wound: bilateral: Arm, Forearm, Wrist, Thigh, Leg Pain Radiation: None *Review of Systems - Review of Systems Able to Perform ROS?: Yes Constitutional: No: Chills, Fever HEENTM: No: Nose Congestion, Throat Swelling, Difficulty Swallowing Respiratory: No: Orthopnea, Wheezing Cardiac (ROS): No: Lightheadedness ABD/GI: No: Poor Appetite, Indigestion : No: Incontinence, Pain Integumentary: Yes: Other (scratches) Neurological: No: Numbness *Physical Exam - Vital Signs Last Vital Signs Temp Pulse Resp BP Pulse Ox 98.5 F 79 17 131/82 96 10/28/18 11:39 10/28/18 11:39 10/28/18 11:39 10/28/18 11:39 10/28/18 11:39 - Physical Exam General Appearance: Yes: Nourished HEENT: positive: TMs Normal, Pharynx Normal Neck: positive: Supple. negative: Carotid bruit, Lymphadenopathy (R) Respiratory/Chest: positive: Lungs Clear Cardiovascular: positive: Regular Rhythm, Regular Rate Extremity: positive: Normal Capillary Refill Integumentary: positive: Other (scratches on bilateral forearms, wrist hands and lower extremities) Neurologic: positive: Fully Oriented, Alert, Motor Strength 5/5 Medical Decision Making - Medical Decision Making 10/28/18 21:07 43 year old female return to ed for wound check s/p attacked by own cat 8 days ago sustaining multiple scratches on upper and lower extremities wounds healing well, small area on left wrist with induration, tender to touch. No erythema, no warmth Plan rx: keflex *DC/Admit/Observation/Transfer Diagnosis at time of Disposition: Cat bite Qualifiers: Encounter type: subsequent encounter Qualified Code(s): W55.01XD - Bitten by cat, subsequent encounter - Discharge Dispostion Disposition: HOME Condition at time of disposition: Good Decision to Admit order: No - Prescriptions Prescriptions: Cephalexin [Keflex] 500 mg PO BID #14 capsule - Referrals Referrals: John Paul To MD [Primary Care Provider] - - Patient Instructions Printed Discharge Instructions: How to Care for a Domestic Animal Bite Additional Instructions: Please keep wounds clean and dry May apply mederma to wounds. Call primay physician and follow up as needed Take prescribed medication until completed. - Post Discharge Activity Forms/Work/School Notes: Back to Work
== END 2018-10-28 12:14 | disposition home or self-care (01) ==
LOC: JERFT 11:35
DX: Z48.00 Encounter for change or removal of nonsurgical wound dressing (principal); W55.01XD Bitten by cat, subsequent encounter
CPT/HCPCS: 99281-25

== ENCOUNTER 2019-02-11 06:24 | Day surgery (SDC) | payer OTHER ==
[2019-02-11 06:50] VITALS: BMI 49.2
[2019-02-11] MEDS ORDERED: MIDAZOLAM HCL 2 MG/2 ML SINGLE DOSE VIAL ONE (08:09)
--- NOTE | 2019-02-11 08:12 | HP ---
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 Pain is rated 8/10/ History Source: Patient - Past Medical History ...LMP: 01/22/19 ...LMP Comment: perimenopausal? ...: No - Smoking History Smoking history: Never smoked Have you smoked in the past 12 months: No Aproximately how many cigarettes per day: 0 - Alcohol/Substance Use Hx Alcohol Use: Yes (rarely social) Home Medications - Allergies Allergies/Adverse Reactions: Allergies Allergy/AdvReac Type Severity Reaction Status Date / Time No Known Drug Allergies Allergy Verified 02/11/19 06:50 - Home Medications Home Medications: Ambulatory Orders Ibuprofen 400 mg PO PRN PRN 02/11/19 Vicodin Es 7.5-300 mg Tablet 500 mg PO PRN PRN 02/11/19 Physical Examination Vital Signs: Vital Signs Temperature 97.8 F 02/11/19 06:42 Pulse Rate 85 02/11/19 06:42 Respiratory Rate 20 02/11/19 06:42 Blood Pressure 109/68 02/11/19 06:42 O2 Sat by Pulse Oximetry (%) 97 02/11/19 07:27 Findings/Remarks: B/L SIJ TTP Assessment/Plan Pt with B/L SIJ dysfunction. WIll perfrom b/lk SIJ steroid injections.
[2019-02-11] MEDS ORDERED: PROPOFOL 20 ML ONE ×3 (08:18→08:28)
[2019-02-11] MEDS ORDERED: LIDOCAINE HCL/PF 2% SDV 5ML VIAL ONE (08:23)
[2019-02-11] MEDS ORDERED: TRIAMCINOLONE ACET 40MG/1ML VIAL IM ONE (08:36)
[2019-02-11] MEDS ORDERED: LIDOCAINE HCL 1%, 10 MG/ML (20ML VIAL) NR ONE (08:36)
[2019-02-11] MEDS ORDERED: IOHEXOL 180 MG/1 ML ML IJ ONE (08:36)
[2019-02-11] MEDS ORDERED: BUPIVACAINE HCL 0.5% 250 MG/50 ML VIAL NR ONE (08:39)
[2019-02-11 09:08] VITALS: TEMP 97.7
[2019-02-11 10:47] VITALS: BP 125/67; PULSE 85
--- NOTE | 2019-02-11 11:36 | PROC ---
Procedure Note Procedure: Pre procedure Diagnosis: Right and Left Sacroilliac joint Dysfunction. Post Procedure Diagnosis: Same Anesthesia: MAC Procedure: Right and Left Sacroilliac Joint Injection under Fluoroscopic Guidance After the risks and benefits were explained, informed consent was obtained. The patient was then taken to the procedure room and positioned prone on the procedure table. Time out was performed. The region overlying the right sacroiliac joint was identified using fluoroscopy. The skin was prepped and draped in the usual sterile fashion. The skin and soft tissues were anesthetized using 2% lidocaine. Using fluoroscopic guidance, a 22 gauge 3.5 inch spinal needle was then introduced to the inferior aspect of the posterior Right sacroiliac joint. Omnipaque 240 confirmed appropriate needle placement. 1 cc .5% bupivacaine and 1 cc Kenalog was then injected. The same was procedure was repeated on the Left. The patient tolerated the procedure well and there were no complications. The patient was taken to the post procedure recovery area in good condition. Vital signs remained stable before, during, and after the procedure. The patient was given oral and written follow-up instructions. The patient was given a follow up appointment with me in the near future. Fletcher Guaman DO
== END 2019-02-11 10:46 | disposition home or self-care (01) ==
LOC: JASU-SURG 06:24
PROVIDERS: ATTEND Pain Medicine Pain Medicine
PROC: 3E0U3BZ Introduction of Anesthetic Agent into Joints, Percutaneous Approach (ICD-10-PCS; 2019-02-11)
PROC: 3E0U33Z Introduction of Anti-inflammatory into Joints, Percutaneous Approach (ICD-10-PCS; principal; 2019-02-11 08:00)
DX: M54.16 Radiculopathy, lumbar region (principal); M54.5 Low back pain
CPT/HCPCS: 76000-TC-FY

== ENCOUNTER 2019-04-15 07:13 | Day surgery (SDC) | payer OTHER ==
[2019-04-14 08:47] VITALS: BMI 49.2
[2019-04-15] MEDS ORDERED: DEXAMETHASONE SOD PHOSPHATE/PF 10 MG/ML SDV ONE (07:25)
[2019-04-15] MEDS ORDERED: LIDOCAINE HCL 1%, 10 MG/ML (20ML VIAL) ONE (07:25)
[2019-04-15] MEDS ORDERED: BUPIVACAINE HCL/PF 0.75% 10 ML VIAL ONE (07:25)
[2019-04-15] MEDS ORDERED: TRIAMCINOLONE ACET 40MG/1ML VIAL ONE (07:25)
[2019-04-15] MEDS ORDERED: SODIUM CHLORIDE 0.9% P/F 10 ML VIAL IJ ONE (07:31)
[2019-04-15] MEDS ORDERED: MIDAZOLAM HCL 2 MG/2 ML SINGLE DOSE VIAL ONE ×3 (08:10→09:07)
[2019-04-15] MEDS ORDERED: IOHEXOL 180 MG/1 ML ML IJ ONE ×2 (09:08)
[2019-04-15] MEDS ORDERED: PROPOFOL 20 ML ONE (09:08)
[2019-04-15] MEDS ORDERED: BUPIVACAINE HCL/PF 0.75% 10 ML VIAL NR ONE (09:08)
[2019-04-15] MEDS ORDERED: LIDOCAINE HCL 1%, 10 MG/ML (20ML VIAL) INF ONE ×2 (09:08)
[2019-04-15 11:29] VITALS: BP 142/84; PULSE 85; TEMP 98.7
== END 2019-04-15 11:15 | disposition home or self-care (01) ==
LOC: JASU-SURG 07:13
PROVIDERS: ATTEND Pain Medicine Pain Medicine
PROC: BR16YZZ Fluoroscopy of Lumbar Facet Joint(s) using Other Contrast (ICD-10-PCS; 2019-04-15)
PROC: 3E0T3BZ Introduction of Anesthetic Agent into Peripheral Nerves and Plexi, Percutaneous Approach (ICD-10-PCS; principal; 2019-04-15 09:00)
DX: M12.88 Other specific arthropathies, not elsewhere classified, other specified site (principal); M54.5 Low back pain
CPT/HCPCS: 76000-TC-FY; 84703

== ENCOUNTER 2019-04-29 01:17 | Emergency (ER) | payer OTHER ==
[2019-04-29 01:36] VITALS: TEMP 98.2; BMI 53.5
[2019-04-29] MEDS ORDERED: ACETAMINOPHEN 325 MG TABLET (FP) PO ONE (03:36)
[2019-04-29] MEDS ORDERED: ACETAMINOPHEN 325 MG TABLET (FP) ONE (03:39)
--- NOTE | 2019-04-29 04:25 | PDOC ---
Attending Attestation - Resident Resident Name: Maverick Harvey - ED Attending Attestation I have performed the following: I have examined & evaluated the patient, The case was reviewed & discussed with the resident, I agree w/resident's findings & plan, Exceptions are as noted - HPI HPI: 05/05/19 22:24 See resident HPI - Physicial Exam PE: 05/05/19 22:24 Agree with exam as documented - Medical Decision Making 05/05/19 22:24 44F with viral syndrome, daughter at home also with similar symptoms, no travel symptomatic tx, re-eval pt improved dc, pcp f/u
--- NOTE | 2019-04-29 04:44 | PDOC ---
History of Present Illness - General Chief Complaint: Cold Symptoms Stated Complaint: COUGH,BODYACHES,FEVER History Source: Patient Exam Limitations: No Limitations - History of Present Illness Initial Comments: 04/29/19 04:40 44 yo female presents to ED with daughter for fevers and headaches. Daughters symptoms began earlier today and pt symptoms progressively worsened over the course of the day. Pt able to eat and drink, denies N/V, abdominal pain, changes in bowel or bladder habits, CP, SOB. Pt did not take any medication at home. Past History - Past Medical History Allergies/Adverse Reactions: Allergies Allergy/AdvReac Type Severity Reaction Status Date / Time No Known Drug Allergies Allergy Verified 04/29/19 01:32 Home Medications: Ambulatory Orders Ibuprofen 400 mg PO PRN PRN 02/11/19 Anemia: No Asthma: No (HASN'T USED INHALER IN OVER A YEAR) Cancer: No Cardiac Disorders: No CVA: No COPD: No CHF: No Dementia: No Diabetes: No GI Disorders: Yes (HX GALL STONES) Disorders: Yes (DROPPED BLADDER) HTN: No Hypercholesterolemia: No Liver Disease: No Seizures: No Thyroid Disease: No - Surgical History Abdominal Surgery: No Appendectomy: No Cardiac Surgery: No Cholecystectomy: Yes (2014) Lung Surgery: No Neurologic Surgery: No Orthopedic Surgery: No - Immunization History Td Vaccination: Yes - Psycho Social/Smoking Cessation Hx Smoking Status: No Smoking History: Never smoked Years of Tobacco Use: 0 Have you smoked in the past 12 months: No Number of Cigarettes Smoked Daily: 0 Cigars Per Day: 0 Information on smoking cessation initiated: No Hx Alcohol Use: No Drug/Substance Use Hx: No Substance Use Type: None, Alcohol Hx Substance Use Treatment: No Review of Systems - Review of Systems Constitutional: Yes: See HPI HEENTM: Yes: See HPI Respiratory: Yes: See HPI Cardiac (ROS): Yes: See HPI ABD/GI: Yes: See HPI : Yes: See HPI Musculoskeletal: Yes: See HPI Integumentary: Yes: See HPI Neurological: Yes: See HPI *Physical Exam - Vital Signs Last Vital Signs Temp Pulse Resp BP Pulse Ox 98.2 F 98 H 20 143/74 96 04/29/19 01:32 04/29/19 01:32 04/29/19 01:32 04/29/19 01:32 04/29/19 01:32 - Physical Exam General Appearance: Yes: Nourished, Appropriately Dressed. No: Apparent Distress HEENT: positive: EOMI, Normal Voice, Hearing Grossly Normal. negative: Pharyngeal Erythema, Tonsillar Erythema, Excessive drooling Respiratory/Chest: positive: Lungs Clear, Normal Breath Sounds. negative: Respiratory Distress, Accessory Muscle Use, Rapid RR, Crackles, Rales, Rhonchi, Stridor, Wheezing Cardiovascular: positive: Regular Rhythm, Regular Rate, S1, S2. negative: Edema , JVD, Murmur Vascular Pulses: Dorsalis-Pedis (R): 4+, Doralis-Pedis (L): 4+ Gastrointestinal/Abdominal: positive: Flat, Soft. negative: Pulsatile Mass, Protuberent, Distended, Guarding, Rebound, Tenderness Musculoskeletal: negative: CVA Tenderness Extremity: positive: Normal Capillary Refill, Normal Inspection, Normal Range of Motion Integumentary: positive: Normal Color, Dry, Warm Neurologic: positive: Fully Oriented, Alert, Normal Mood/Affect, Normal Response ED Treatment Course - Medications Given in the ED: ED Medications Discontinued Medications Generic Name Dose Route Start Last Admin Trade Name Donaldoq PRN Reason Stop Dose Admin Acetaminophen 650 mg 04/29/19 03:36 04/29/19 03:42 Tylenol - PO 04/29/19 03:37 650 mg ONCE ONE Administration Medical Decision Making - Medical Decision Making 04/29/19 04:43 44 yo female presents to ED with daughter for fevers and headaches. Daughters symptoms began earlier today and pt symptoms progressively worsened over the course of the day. Pt able to eat and drink, denies N/V, abdominal pain, changes in bowel or bladder habits, CP, SOB. Pt did not take any medication at home. vitals WNL Pt is well appearing, NAD. Pt will be givwen PO hydration and tylenol and reassessed 04/29/19 05:29 Pt feels better after tylenol, will DC home with PCP f/u Discharge - Discharge Information Problems reviewed: Yes Clinical Impression/Diagnosis: Influenza Condition: Stable Disposition: HOME - Admission No - Follow up/Referral Referrals: John Paul To MD [Primary Care Provider] - - Patient Discharge Instructions Patient Printed Discharge Instructions: How to Avoid a Cold or Flu, DI for Viral Upper Respiratory Infection -- Adult, DI for H1N1 Influenza -- Adult Additional Instructions: Please see your Primary Doctor within the next 48 hours. Take over the counter Tylenol and Motrin alternating every 4-6 hours for pain and fevers. Return to the ER for new or concerning symptoms. Thank you - Post Discharge Activity
[2019-04-29 05:54] VITALS: BP 92/42; PULSE 123
== END 2019-04-29 06:50 | disposition home or self-care (01) ==
LOC: JER 01:17
DX: J11.1 Influenza due to unidentified influenza virus with other respiratory manifestations (principal); Z87.19 Personal history of other diseases of the digestive system; Z87.448 Personal history of other diseases of urinary system; Z87.09 Personal history of other diseases of the respiratory system; Z90.49 Acquired absence of other specified parts of digestive tract
CPT/HCPCS: 99283-25

== ENCOUNTER 2020-05-08 09:25 | Emergency (ER) | payer OTHER ==
[2020-05-08 09:33] VITALS: BP 137/62; PULSE 89; BMI 54.8
[2020-05-08] MEDS ORDERED: predniSONE 20 MG TABLET (UD) PO ONE (09:40)
[2020-05-08] MEDS ORDERED: diphenhydrAMINE HCL 25 MG CAPSULE (FP) PO ONE ×4 (09:41→09:45)
[2020-05-08] MEDS ORDERED: FAMOTIDINE 20 MG TABLET PO ONE (09:43)
[2020-05-08] MEDS ORDERED: FAMOTIDINE 20 MG TABLET ONE ×2 (09:43→09:49)
[2020-05-08] MEDS ORDERED: predniSONE 10 MG TABLET (UD) ONE (09:43)
[2020-05-08] MEDS ORDERED: predniSONE 20 MG TABLET (UD) ONE (09:44)
== END 2020-05-08 10:25 | disposition home or self-care (01) ==
LOC: JERFT 09:25
DX: L50.9 Urticaria, unspecified (principal)
CPT/HCPCS: 99283-25

== ENCOUNTER 2023-01-21 11:11 | Emergency (ER) | payer BC ==
[2023-01-21] MEDS ORDERED: ACETAMINOPHEN 1000 MG/100 ML BAG IVPB ONE (12:13)
[2023-01-21] MEDS ORDERED: METOCLOPRAMIDE HCL INJECTION 10 MG/2 ML VIAL IVPUSH ONE (12:13)
[2023-01-21] MEDS ORDERED: SODIUM CHLORIDE 1,000 ML IV STA (12:13)
[2023-01-21] MEDS ORDERED: FAMOTIDINE 20 MG/50 ML IVPB 20 MG/50 ML MG IVPB ONE ×2 (12:14→12:58)
[2023-01-21] MEDS ORDERED: ACETAMINOPHEN INJECTION 100 ML IVPB ONE (12:57)
[2023-01-21] MEDS ORDERED: METOCLOPRAMIDE HCL INJECTION 10 MG/2 ML VIAL ONE (12:57)
[2023-01-21 13:04] LABS: HCG,QUALITATIVE URINE Negative
[2023-01-21 13:06] LABS: EPI CELLS 15 /uL (0-25.1); HYALINE CASTS 1 /uL (0-3.1); PH,URINE 5.5 (5.0-8.0); URINE APPEARANCE CLEAR; URINE BACTERIA 289 /uL (0-1359); URINE BILIRUBIN NEGATIVE (NEGATIVE); URINE COLOR DK YELLOW; URINE GLUCOSE (UA) NEGATIVE (NEGATIVE); URINE KETONE TRACE (NEGATIVE); URINE LEUK ESTERASE NEGATIVE (NEGATIVE); URINE NITRITE NEGATIVE (NEGATIVE); URINE PROTEIN TRACE (NEGATIVE); URINE UROBILINOGEN 0.2 mg/dL (0.2-1.0); URINE WBC 9 /uL (0-25.8)
[2023-01-21 13:19] VITALS: RESP 18; BMI 51.6
[2023-01-21 13:31] LABS: URINE RBC 30 /uL (0-23.9)
[2023-01-21 14:01] LABS: BASO % 0.5 % (0-2.0); EOS % 0.2 % (0-4.5); HEMOGLOBIN 12.8 GM/dL (10.7-15.3); LYMPH % 15.6 % (8-40); MCH 24.8 pg (25.7-33.7); MCHC 31.2 g/dl (32.0-36.0); MEAN CELL VOLUME 79.6 fl (80-96); MONO % 5.1 % (3.8-10.2); NEUT % 78.6 % (42.8-82.8); PLATELET COUNT 493 10^3/uL (134-434); RBC 5.14 M/mm3 (3.60-5.2); RDW 15.8 % (11.6-15.6); WHITE BLOOD COUNT 11.6 K/mm3 (4.0-10.0)
[2023-01-21 14:26] LABS: POTASSIUM 3.9 mmol/L (3.5-5.1)
[2023-01-21 14:28] LABS: BLOOD UREA NITROGEN 16.1 mg/dL (7-18); CALCIUM 8.9 mg/dL (8.5-10.1)
[2023-01-21 14:29] LABS: ALBUMIN 3.6 g/dl (3.4-5.0)
[2023-01-21 14:32] LABS: CREATININE 0.8 mg/dL (0.55-1.3)
[2023-01-21 14:33] LABS: BILIRUBIN,TOTAL 0.5 mg/dL (0.2-1); TOT PROT 7.7 g/dl (6.4-8.2)
[2023-01-21 18:08] VITALS: BP 133/79; PULSE 84; TEMP 98.2
== END 2023-01-21 18:08 | disposition home or self-care (01) ==
LOC: JER 11:11
PROC: 3E033GC Introduction of Other Therapeutic Substance into Peripheral Vein, Percutaneous Approach (ICD-10-PCS; principal; 2023-01-21)
PROC: 3E033NZ Introduction of Analgesics, Hypnotics, Sedatives into Peripheral Vein, Percutaneous Approach (ICD-10-PCS; 2023-01-21)
PROC: 3E033GC Introduction of Other Therapeutic Substance into Peripheral Vein, Percutaneous Approach (ICD-10-PCS; 2023-01-21)
DX: R10.12 Left upper quadrant pain (principal); R19.7 Diarrhea, unspecified; R11.2 Nausea with vomiting, unspecified; E66.01 Morbid (severe) obesity due to excess calories; Z68.43 Body mass index [BMI] 50.0-59.9, adult; Z20.822 Contact with and (suspected) exposure to COVID-19
CPT/HCPCS: 0241U-QW; 36415; 74177-TC; 80053; 81003; 83690; 84703; 85025; 87086; 99285-25; Q9967